=== PATIENT | female | born 1985 | race African-American/Black ===

== ENCOUNTER 2018-06-07 15:15 | Emergency (ER) | payer MEDICAID ==
[~2018-06-07] VITALS: Ht 152.4 cm; Wt 68.0 kg
[~2018-06-07 15:15] MED LIST: ZOLOFT25 MG ORAL
[2018-06-07 15:24] VITALS: BP 132/80
[2018-06-07 16:50] LABS: BASOPHILS % (AUTO) 3.1 % (0.0-2.0); EOSINOPHILS % (AUTO) 1.9 % (0.0-3.0); HEMATOCRIT 44.2 % (37.0-47.0); HEMOGLOBIN 14.3 G/DL (12.0-16.0); LYMPHOCYTES % (AUTO) 34.7 % (20.0-45.0); MEAN CORPUSCULAR VOLUME 88 FL (80-99); MONOCYTES % (AUTO) 7.9 % (1.0-10.0); NEUTROPHILS % (AUTO) 52.5 % (45.0-75.0); PLATELET COUNT 364 K/UL (150-450); RED BLOOD COUNT 5.04 M/UL (4.20-5.40); RED CELL DISTRIBUTION WIDTH 13.7 % (11.6-14.8); WHITE BLOOD COUNT 5.5 K/UL (4.8-10.8)
[2018-06-07 17:02] LABS: ANION GAP 8 mmol/L (5-15); BLOOD UREA NITROGEN 13 mg/dL (7-18); CALCIUM 9.3 MG/DL (8.5-10.1); CARBON DIOXIDE 28 MMOL/L (21-32); CHLORIDE 103 MMOL/L (98-107); POTASSIUM 3.9 MMOL/L (3.5-5.1); SODIUM 139 MMOL/L (136-145)
[2018-06-07 17:06] LABS: ALANINE AMINOTRANSFERASE 33 U/L (12-78); ALBUMIN 3.6 G/DL (3.4-5.0); ALBUMIN/GLOBULIN RATIO 0.7 (1.0-2.7); ALKALINE PHOSPHATASE 67 U/L (46-116); ASPARTATE AMINO TRANSFERASE 29 U/L (15-37); BILIRUBIN,TOTAL 0.4 MG/DL (0.2-1.0)
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
[2018-06-08 05:30] VITALS: BP 127/74
--- NOTE | 2018-06-08 10:48 | Consultation ---
History of Present Illness General Chief Complaint: General Complaint Present Illness HPI 32 yo old black female with hx of substance use d/o who was brought in after she was caught smoking mj and drinking in her sober living, the pt was given zyprexa here in er. the pt was calm and cooperative during my eval the rn was present the pt denied si/hi. the pt has been noncompliant with her treatment at . the pt is not at imminent dts/dto. the pt is not endorsing psychotic/manic sxs. Allergies: Coded Allergies: No Known Allergies (Unverified , 06/07/18) Medication History Scheduled Sertraline Hcl* (Zoloft*), 25 MG ORAL DAILY, (Reported) Patient History History Provided By: Patient, Medical Record, PMD Healthcare decision maker Resuscitation status Advanced Directive on File Review of Systems Psychiatric: Reports: no symptoms, prior hx Physical Exam General Appearance: no apparent distress, alert, morbidly obese Neurologic: oriented x 3, responsive Last 24 Hour Vital Signs Date Time Temp Pulse Resp B/P (MAP) Pulse Ox O2 Delivery O2 Flow Rate FiO2 06/08/18 05:30 98.6 66 14 127/74 100 Room Air 06/07/18 15:24 97.9 75 18 132/80 100 Room Air 06/07/18 15:24 87 18 Room Air 98 06/07/18 15:11 97.9 87 18 132/80 100 Intake and Output 06/07/18 06/08/18 19:00 07:00 Intake Total 500 ml Balance 500 ml Intake Oral 500 ml Laboratory Tests Test 06/07/18 16:05 White Blood Count 5.5 K/UL (4.8-10.8) Red Blood Count 5.04 M/UL (4.20-5.40) Hemoglobin 14.3 G/DL (12.0-16.0) Hematocrit 44.2 % (37.0-47.0) Mean Corpuscular Volume 88 FL (80-99) Mean Corpuscular Hemoglobin 28.3 PG (27.0-31.0) Mean Corpuscular Hemoglobin Concent 32.3 G/DL (32.0-36.0) Red Cell Distribution Width 13.7 % (11.6-14.8) Platelet Count 364 K/UL (150-450) Mean Platelet Volume 6.2 FL (6.5-10.1) L Neutrophils (%) (Auto) 52.5 % (45.0-75.0) Lymphocytes (%) (Auto) 34.7 % (20.0-45.0) Monocytes (%) (Auto) 7.9 % (1.0-10.0) Eosinophils (%) (Auto) 1.9 % (0.0-3.0) Basophils (%) (Auto) 3.1 % (0.0-2.0) H Sodium Level 139 MMOL/L (136-145) Potassium Level 3.9 MMOL/L (3.5-5.1) Chloride Level 103 MMOL/L (98-107) Carbon Dioxide Level 28 MMOL/L (21-32) Anion Gap 8 mmol/L (5-15) Blood Urea Nitrogen 13 mg/dL (7-18) Creatinine 1.0 MG/DL (0.55-1.30) Estimat Glomerular Filtration Rate > 60 mL/min (>60) Glucose Level 97 MG/DL (74-106) Calcium Level 9.3 MG/DL (8.5-10.1) Total Bilirubin 0.4 MG/DL (0.2-1.0) Aspartate Amino Transf (AST/SGOT) 29 U/L (15-37) Alanine Aminotransferase (ALT/SGPT) 33 U/L (12-78) Alkaline Phosphatase 67 U/L (46-116) Total Protein 8.7 G/DL (6.4-8.2) H Albumin 3.6 G/DL (3.4-5.0) Globulin 5.1 g/dL Albumin/Globulin Ratio 0.7 (1.0-2.7) L Salicylates Level 0.6 ug/mL (2.8-20) L Urine Opiates Screen Negative (NEGATIVE) Acetaminophen Level < 2 MCG/ML (10-30) L Urine Barbiturates Screen Negative (NEGATIVE) Phencyclidine (PCP) Screen Negative (NEGATIVE) Urine Amphetamines Screen Negative (NEGATIVE) Urine Benzodiazepines Screen Negative (NEGATIVE) Urine Cocaine Screen Negative (NEGATIVE) Urine Marijuana (THC) Screen Negative (NEGATIVE) Serum Alcohol 130 mg/dL Height (Feet): 5 Weight (Pounds): 150 Assessment/Plan Status: stable Assessment/Plan poly substance dependence the pt is not at imminent dts/dto -dc to the sober living -the pt is not meeting the criteria for 5150/iploc -the pt should cont with outpt psych -the pt is not willing to take additional psych meds Meggan Smith MD Jun 08, 2018 10:48
[2018-06-08 11:47] VITALS: BP 122/78
--- NOTE | 2018-06-08 11:47 | Emergency Room Report ---
Physical Exam Vital Signs Date Time Temp Pulse Resp B/P (MAP) Pulse Ox O2 Delivery O2 Flow Rate FiO2 06/07/18 15:11 97.9 87 18 132/80 100 06/07/18 15:24 Room Air 98 Medical Decision Making Diagnostic Impression: Primary Impression: Alcohol abuse Additional Impression: Behavioral disorder ER Course 32-year-old female presents ED for noncompliance. alcohol abuse. Substance abuse. From sober living Patient initially seen and evaluated by NEGRA Johnson; please see her note for initial history and physical Patient pending assessment in a.m. Also pending assessment by psychiatry Patient is not on 5150 hold. Not endorsing SI or HI. Not gravely disabled as per my evaluation Patient evaluated by psychiatry. She agrees the patient is not a danger to herself or others. Refuses to take any psychiatric meds. Not gravely disabled at this time. Patient is accepted back to sober living facility. given taxi voucher. Will be provided with outpatient mental health referrals I agree with psychiatry assessment the patient does not require emergent psychiatric evaluation Diagnosisalcohol abuse stable and discharged to sober living. followup with PMD. return to ED if symptosm recur/worsen Labs Test 06/07/18 16:05 White Blood Count 5.5 K/UL (4.8-10.8) Red Blood Count 5.04 M/UL (4.20-5.40) Hemoglobin 14.3 G/DL (12.0-16.0) Hematocrit 44.2 % (37.0-47.0) Mean Corpuscular Volume 88 FL (80-99) Mean Corpuscular Hemoglobin 28.3 PG (27.0-31.0) Mean Corpuscular Hemoglobin Concent 32.3 G/DL (32.0-36.0) Red Cell Distribution Width 13.7 % (11.6-14.8) Platelet Count 364 K/UL (150-450) Mean Platelet Volume 6.2 FL (6.5-10.1) Neutrophils (%) (Auto) 52.5 % (45.0-75.0) Lymphocytes (%) (Auto) 34.7 % (20.0-45.0) Monocytes (%) (Auto) 7.9 % (1.0-10.0) Eosinophils (%) (Auto) 1.9 % (0.0-3.0) Basophils (%) (Auto) 3.1 % (0.0-2.0) Sodium Level 139 MMOL/L (136-145) Potassium Level 3.9 MMOL/L (3.5-5.1) Chloride Level 103 MMOL/L (98-107) Carbon Dioxide Level 28 MMOL/L (21-32) Anion Gap 8 mmol/L (5-15) Blood Urea Nitrogen 13 mg/dL (7-18) Creatinine 1.0 MG/DL (0.55-1.30) Estimat Glomerular Filtration Rate > 60 mL/min (>60) Glucose Level 97 MG/DL (74-106) Calcium Level 9.3 MG/DL (8.5-10.1) Total Bilirubin 0.4 MG/DL (0.2-1.0) Aspartate Amino Transf (AST/SGOT) 29 U/L (15-37) Alanine Aminotransferase (ALT/SGPT) 33 U/L (12-78) Alkaline Phosphatase 67 U/L (46-116) Total Protein 8.7 G/DL (6.4-8.2) Albumin 3.6 G/DL (3.4-5.0) Globulin 5.1 g/dL Albumin/Globulin Ratio 0.7 (1.0-2.7) Salicylates Level 0.6 ug/mL (2.8-20) Urine Opiates Screen Negative (NEGATIVE) Acetaminophen Level < 2 MCG/ML (10-30) Urine Barbiturates Screen Negative (NEGATIVE) Phencyclidine (PCP) Screen Negative (NEGATIVE) Urine Amphetamines Screen Negative (NEGATIVE) Urine Benzodiazepines Screen Negative (NEGATIVE) Urine Cocaine Screen Negative (NEGATIVE) Urine Marijuana (THC) Screen Negative (NEGATIVE) Serum Alcohol 130 mg/dL Last Vital Signs Date Time Temp Pulse Resp B/P (MAP) Pulse Ox O2 Delivery O2 Flow Rate FiO2 06/08/18 05:30 98.6 66 14 127/74 100 Room Air 06/07/18 15:24 98 Status: improved Disposition: HOME, SELF-CARE Condition: Stable Referrals: NON PHYSICIAN (PCP) [facility] + [facility] - Peds ER - [facility] Intake Hotline - Patient Instructions: Alcohol Abuse and Nutrition David Simon MD Jun 08, 2018 11:47
== END 2018-06-08 11:52 | disposition home or self-care (01) ==
LOC: EDBD 15:15 → EMR 16:15
DX: F91.9 Conduct disorder, unspecified (principal); Z91.14 Patient's other noncompliance with medication regimen; F10.10 Alcohol abuse, uncomplicated; F12.90 Cannabis use, unspecified, uncomplicated; F32.9 Major depressive disorder, single episode, unspecified; F31.9 Bipolar disorder, unspecified
CPT/HCPCS: 36415; 80053; 80307; 80329; 85025; 99284

== ENCOUNTER 2018-10-11 10:12 | Emergency (ER) | payer MEDICAID ==
[~2018-10-11] VITALS: Ht 165.1 cm; Wt 70.3 kg
--- NOTE | 2018-10-11 10:15 | NUR ---
ED Nurse Note: Patient brought in by ambulance RA 33 from home. patient reports she feels jitteriness and thinks she has "overdosed to marijuana" and "feel like dying" patient is alert awake x4 ambulatory
[2018-10-11 10:32] VITALS: BP 130/65
--- NOTE | 2018-10-11 10:32 | NUR ---
ED Nurse Note: Urine sent to lab
--- NOTE | 2018-10-11 11:00 | NUR ---
HAND-OFF: Report given to Radha Lyle RN. patient moved to chair in stable condition per Dr. Marquis's order
--- NOTE | 2018-10-11 12:00 | NUR ---
ER DISCHARGE NOTE: Patient is cleared to be discharged per ERMD, pt is aox4, on room air, with stable vital signs. pt was given dc and prescription instructions, pt was able to verbalize understanding, pt is able to ambulate with steady gait. pt took all belongings.
[2018-10-11 17:23] VITALS: BP 130/65
--- NOTE | 2018-10-12 16:11 | Emergency Room Report ---
History of Present Illness General Chief Complaint: Overdose Present Illness HPI Patient is a 33-year-old female brought in by EMS after increased palpitations. Patient had recently smoked marijuana cigarette. Patient states that she had began having increased palpitations subsequently. Patient had prior history of bipolar disorder as well as schizophrenia. Allergies: Coded Allergies: No Known Allergies (Unverified , 06/07/18) Patient History Past Medical History: see triage record Reviewed Nursing Documentation: PMH: Agreed; PSxH: Agreed Review of Systems All Other Systems: negative except mentioned in HPI Physical Exam Vital Signs Date Time Temp Pulse Resp B/P (MAP) Pulse Ox O2 Delivery O2 Flow Rate FiO2 10/11/18 10:09 98.8 115 20 154/88 99 Room Air Sp02 EP Interpretation: reviewed, normal General Appearance: normal inspection, well appearing, no apparent distress, alert, GCS 15, non-toxic Head: atraumatic ENT: normal ENT inspection, hearing grossly normal, normal voice Neck: normal inspection, full range of motion, supple, no bony tend Respiratory: normal inspection, lungs clear, normal breath sounds, no respiratory distress, no retraction, no wheezing Cardiovascular #1: regular rate, rhythm, no edema Gastrointestinal: normal inspection, normal bowel sounds, non tender, soft, no guarding, no hernia Genitourinary: no CVA tenderness Musculoskeletal: normal inspection, back normal, normal range of motion Neurologic: normal inspection, alert, responsive, speech normal Psychiatric: normal inspection, judgement/insight normal, mood/affect normal Skin: normal inspection, normal color, no rash Medical Decision Making Diagnostic Impression: Primary Impression: Substance abuse ER Course Patient presented for palpitations. . The differential diagnosis included was not limited to arrhythmia, thyroid storm, sepsis, anemia, myocardial infarction , alcohol withdrawal, stimulant abuse, caffeine overdose among others, Patient was noted to have recent marijuana use. Patient's rhythm strip showed normal sinus rhythm without any PVCs or ectopy. Patient stated that she felt better and wanted to go home. Patient palpitations likely related to recent substance abuse. Labs Test 10/11/18 11:10 Urine HCG, Qualitative Negative (NEGATIVE) Urine Opiates Screen Negative (NEGATIVE) Urine Barbiturates Screen Negative (NEGATIVE) Phencyclidine (PCP) Screen Negative (NEGATIVE) Urine Amphetamines Screen Negative (NEGATIVE) Urine Benzodiazepines Screen Negative (NEGATIVE) Urine Cocaine Screen Negative (NEGATIVE) Urine Marijuana (THC) Screen Positive (NEGATIVE) EKG Diagnostic Results Rate: normal Last Vital Signs Date Time Temp Pulse Resp B/P (MAP) Pulse Ox O2 Delivery O2 Flow Rate FiO2 10/11/18 17:23 98.8 99 24 130/65 97 Room Air Status: improved Disposition: HOME, SELF-CARE Condition: Stable Patient Instructions: Substance Abuse Testing Nishant Marquis MD October 12, 2018 16:11
== END 2018-10-11 12:10 | disposition home or self-care (01) ==
LOC: EDBD 10:12 → EMR 11:30
DX: F12.10 Cannabis abuse, uncomplicated (principal); R00.2 Palpitations
CPT/HCPCS: 80307; 81025; 99282